=== PATIENT | male | born 1945 | race Caucasian/White ===

== ENCOUNTER 2019-07-15 07:05 | Day surgery (SDC) | payer OTHER, BC ==
[2019-07-10 12:56] VITALS: BMI 23.9
[2019-07-15] MEDS ORDERED: ONDANSETRON 4 MG/2 ML VIAL IVPUSH PRN (07:54)
[2019-07-15] MEDS ORDERED: LACTATED RINGERS SOLUTION 1,000 ML IV SCH (08:00)
[2019-07-15] MEDS ORDERED: PROPOFOL 20 ML ONE ×2 (08:47)
[2019-07-15 09:42] VITALS: TEMP 97.5
[2019-07-15 10:13] VITALS: BP 139/87; PULSE 72
--- NOTE | 2019-07-18 09:18 | PATH ---
Surgical Pathology Report Patient Name: REY RM JR [facility]. Rec. #: [id number] /Age/Gender: 1945 (Age: 74) / M Account: [id number] Location: [facility] Taken: 07/15/2019 Received: 07/15/2019 Reported: 07/18/2019 Physicians: Favian Walton M.D. Specimen(s) Received POLYP RECTOSIGMOID COLON Clinical History History polyps Postoperative diagnosis: Diverticulosis, colon polyp Final Diagnosis RECTOSIGMOID, POLYP, BIOPSY: HYPERPLASTIC POLYP. Electronically Signed Malou Shanks M.D. Gross Description Received in formalin, labeled "polyp rectosigmoid" is a camarena, irregular portion of soft tissue measuring 0.2 cm. in greatest dimension. The specimen is submitted in toto in one cassette. MLSZ/07/15/2019 sanml/07/15/2019
== END 2019-07-15 10:20 | disposition home or self-care (01) ==
LOC: FASU-ENDO 07:05
PROVIDERS: ATTEND Internal Medicine Gastroenterology
PROC: 0DBN8ZX Excision of Sigmoid Colon, Via Natural or Artificial Opening Endoscopic, Diagnostic (ICD-10-PCS; principal; 2019-07-15 09:03)
DX: Z86.010 Personal history of colon polyps (principal); K63.5 Polyp of colon; K57.30 Diverticulosis of large intestine without perforation or abscess without bleeding
CPT/HCPCS: 88305-TC